=== PATIENT | male | born 1940 | race Caucasian/White ===

== ENCOUNTER 2020-09-28 19:45 | Emergency (ER) | payer MEDICARE, OTHER ==
[2020-09-28] MEDS ORDERED: Sodium Chloride 0.9% 2.5 ML Syringe FLUSH PRN (19:47)
[2020-09-28] MEDS ORDERED: Sodium Chloride 0.9% 10 ML Syringe FLUSH PRN (19:47)
[2020-09-28] MEDS ORDERED: Labetalol 100 MG/20 ML MDV IVPUSH ONE ×2 (19:47→20:40)
[2020-09-28] MEDS ORDERED: Sodium Chloride 0.9% 10 ML SDV IV PRN (19:47)
[2020-09-28] MEDS ORDERED: niCARdipine/Normal Saline 40 MG/200 ML BAG IV SCH (20:00)
--- NOTE | 2020-09-28 20:06 | EDM.PDOC ---
ED HPI GENERAL MEDICAL PROBLEM - General Stated Complaint: STROKE CODE Time Seen by Provider: 09/28/20 19:45 - History of Present Illness INITIAL COMMENTS - FREE TEXT/NARRATIVE: HISTORY AND PHYSICAL: History of present illness: This is a 79-year-old healthy gentleman who presents ER today secondary to acute onset of right facial droop and unsteady gait that started at approximately 3:15 PM tonight on his way back from [place]. Patient denies any history of hypertension, diabetes, liver, lung, kidney, CAD, irregular heartbeats, atrial fibrillation/atrial flutter, strokes, cancer in the past. Patient denies any prior recent abdominal surgeries other than inguinal hernia repairs in the distant past. Patient denies any recent fevers, shakes, chills, nausea, vomiting, diarrhea, dysuria, frequency, urgency. Patient reports that prior to the symptoms he was in his usual state of good health. Patient reports that the only medication he takes is an aspirin daily. Patient reports he has had no headache, double vision, blurred vision. Patient reports no slurring of speech but he does have a right facial droop and does drooling of saliva. Patient reports that he has not experienced weakness in his upper extremities but does feel off balance when ambulating. Patient denies any tobacco, alcohol, drugs. Patient has no known drug allergies. Review of systems: As per history of present illness and below otherwise all systems reviewed and negative. Past medical history: As per history of present illness and as reviewed below otherwise noncontributory. Surgical history: As per history of present illness and as reviewed below otherwise noncontributory. Social history: No reported history of drug or alcohol abuse. Family history: As per history of present illness and as reviewed below otherwise noncontributory. Physical exam: This patient was seen and evaluated during the 2019 SARS-CoV-2 novel coronavirus pandemic period. Community viral transmission is ongoing at time of this encounter and the emergency department is operating under pandemic response procedures. Constitutional: Patient is oriented to person, place, and time. Appears well- developed and well-nourished. No distress. HEENT: Moist mucous membranes Head: Normocephalic and atraumatic Eyes: Right eye exhibits no discharge. Left eye exhibits no discharge. No scleral icterus Neck: Normal range of motion. No tracheal deviation present. Cardiovascular: Normal rate and regular rhythm. Pulmonary: Effort normal, no respiratory distress. Abdominal: No distention Musculoskeletal: Normal range of motion Neurologic: Alert and oriented to person, place and time. Skin: [place], warm and dry. Psychiatric: Normal mood and affect. Behavior is normal. Judgment and thought content normal. Nursing note and vital signs have been reviewed Patient's ER physical exam is significant for right facial droop. Patient's eyebrow and forehead muscle function is intact and not consistent with a Singleton's palsy. Patient's pupils are equally round and reactive to light. Extraocular motions are intact. No nystagmus. Tongue is midline. Patient has no pronator drift. Patient sensation is intact. Patient does have weakness to his right lower extremity relative to his left lower extremity. 1a) Level of consciousness: 0=alert; 1=not alert but arousable by minor stimulation; 2=not alert: requires repeated stimulation to attend or is obtunded and requires strong or painful stimulation to make movements; 3=responds only with reflex motor or autonomic effects or totally unresponsive, flaccid and areflexic SCORE 0 1b) LOC questions ("what month is it?", "how old are you?"): 0=answers both correctly; 1=answers one correctly; 2=answers neither correctly SCORE 0 1c) LOC commands (command patient to "open and close your eyes. [place] and release your hand.): 0=performs both correctly; 1=performs one correctly; 2=performs neither correctly SCORE 0 2) Best gaze ("follow my finger"): 0=normal; 1=partial gaze palsy; 2=forced deviation or total gaze paresis SCORE 0 3) Visual tovar (use confrontation, finger counting, or visual threat. confront upper/lower quadrants of visual field): 0=no visual loss; 1=partial hemianopsia; 2=complete hemianopsia; 3=bilateral hemianopsia SCORE 0 4) Facial palsy (by words or pantomime, encourage patient to: "Show me your teeth. Raise your eyebrows. Close your eyes."): 0=normal symmetrical movement; 1=minor paralysis (flattened nasolabial fold, asymmetry on smiling); 2=partial paralysis (lower face); 3=complete paralysis SCORE 2 5) Arm motor (alternately position patient's arms. extend each arm with palms down [90 degrees if sitting, 45 degrees if supine] - test each arm in turn and start with nonparetic arm first): 0=no drift; 1=drift (arm falls before 10 seconds); 2=some effort vs. gravity; 3=no effort vs. gravity; 4=no movement; UN (untestable)=amputation or joint fusion SCORE 0 6) Leg motor (alternately position patient's legs. extend each leg [30 degrees, always while supine] - test nonparetic leg first): 0=no drift; 1=drift (leg falls before 5 seconds); 2=some effort vs. gravity; 3= no effort vs. gravity; 4=no movement; UN=amputation or joint fusion SCORE 1 7) Limb ataxia (ask patient [eyes open] to: "touch your finger to your nose. touch your heel to your calderon"): 0=absent; 1=present in one limb; 2=present in two or more limbs; UN=amputation or joint fusion SCORE 0 8) Sensory (test as many body parts as possible [arms and not hands, legs, trunk, face] for sensation using pinprick or noxious stimuli [in the obtunded or aphasic patient]): 0=normal; 1=mild to moderate sensory loss; 2=severe to total sensory loss SCORE 0 9) Best language (using pictures and a sentence list, ask patient to "describe what you see in this picture. Name the items in this picture. Read these sentences"): 0=no aphasia, 1=mild to moderate aphasia; 2=severe aphasia; 3=mute, global aphasia SCORE 0 10) Dysarthria (using a simple word list, ask patient to: "read these words" or "repeat these words"): 0=normal articulation; 1=mild to moderate dysarthria; 2=severe dysarthria; UN=intubated or other physical barrier SCORE 0 11) Extinction and inattention (sufficient information to determine these scores may have been obtained during the prior testing): 0=no abnormality; 1=visual, tactile, auditory, spatial or personal inattention; 2=profound danish-inattention or extinction to more than one modality SCORE 0 TOTAL NIHSS Score: Diagnostics: 3 EKG: As interpreted by ER physician: Barber: Nonspecific ST-T wave abnormalities Normal axis No evidence of ST elevation LA Normal sinus rhythm heart rate of 73 Chest Xray: Normal cardiac silhouette No infiltrates or effusions identified. No PTX No evidence of acute bony fracture. As interpreted by ER MD: Barber [employer]: Aspirin 325 mg chewed p.o. Ativan 2 mg IV prior to EMS transport Labetalol 20 mg IV x2 Assessment and plan: This is a 79-year-old gentleman with no significant past medical history presents ER today approximately 3 and half hours past his last known well with complaint of right facial droop and unsteady gait. Patient reports that the symptoms started while he was in his car on his way back from [place]. Patient ports that he was not driving at the time. Upon arrival to the ER, patient's blood glucose was within normal limits. Patient's blood pressure was markedly elevated at 226/126. During his CT scan patient blood pressure appeared to improve spontaneously prior to any medications being administered. Labetalol point milligrams IV has been ordered as well as nicardipine drip in case his blood pressure should continue to remain with an elevated systolic and diastolic blood pressure. Patient has had blood work drawn and sent to the lab. CT scan of his head as well as a CTA of his head and neck has been ordered CTA of head and neck revealed no acute pathology. CT head revealed no acute stroke or bleed. Patient's blood pressure has been monitored in the ED, after labetalol 20 mg IV x2 there is significant improvement. Patient symptoms have persisted. Patient still has a slight right lower extremity weakness which he reports is baseline for him and reports that he has had right hip problems for years and believes that there are no new weaknesses although he does report that he did have some unsteady gait when he got out of the car after his symptoms began. I have discussed the case with Dr. Ramos at [facility] who is agreed to accept patient for transfer and assist with his acute stroke symptoms as well as his non-STEMI and elevated BP. All pertinent labs, vital signs and history/physical exam findings have been relayed prior to transfer. Delay of care and transferring patient to secondary to patient's initial refusal for transfer or even admission to the hospital. I have spent greater than 40 minutes discussing with patient, his friends and his over the phone. With the assistance of his , patient was finally agreed to left transfer to the hospital which is a higher level of care for treatment and evaluation of his stroke/non-STEMI. Stroke alert activated Critical Care: The high probability of sudden, clinically significant deterioration in the patient's condition required the highest level of my preparedness to intervene urgently. The services I provided to this patient were to treat and/or prevent clinically significant deterioration. Services included the following: chart data review, reviewing nursing notes and/or old charts, documentation time, senior consumer insights consultant collaboration regarding findings and treatment options, medication orders and management, direct patient care, vital sign assessments and ordering, interpreting and reviewing diagnostic studies/lab tests. Aggregate critical care time includes only time during which I was engaged inwork directly related to the patient's care, as described above, whether at the bedside or elsewhere in the Emergency Department. It did not include time spent performing other reported procedures or the services of residents, students, nurses or physician assistants. Critical Care Time: 35 minutes Definitive disposition and diagnosis as appropriate pending reevaluation and review of above. - Related Data Allergies Allergy/AdvReac Type Severity Reaction Status Date / Time No Known Allergies Allergy Verified 09/28/20 20:18 Home Meds: Home Meds . [No Known Home Meds] 09/28/20 [History] ED ROS GENERAL - Review of Systems Review Of Systems: See Below ED EXAM, GENERAL - Physical Exam Exam: See Below Course - Vital Signs Last Recorded V/S: Last Vital Signs Temp 97.0 F 09/28/20 19:45 Pulse 86 09/28/20 19:45 Resp 18 09/28/20 19:45 BP 184/120 H 09/28/20 20:15 Pulse Ox 88 L 09/28/20 19:45 - Orders/Labs/Meds Orders: Active Orders 24 hr Category Date Time Status Assess Neurological Status [RC] ASDIRECTED Care 09/28/20 19:47 Active Bedrest [RC] ASDIRECTED Care 09/28/20 19:47 Active Blood Glucose Check, Bedside [RC] STAT Care 09/28/20 19:48 Active Cardiac Monitoring [RC] . DIRECTED Care 09/28/20 19:47 Active EKG Documentation Completion [RC] STAT Care 09/28/20 19:47 Active Height and Weight [RC] UPON Care 09/28/20 19:47 Active Initiate Acute Stroke Protocol [RC] STAT Care 09/28/20 19:47 Active NIH Stroke Scale [RC] ASDIRECTED Care 09/28/20 19:47 Active Nursing Bedside Swallow Screen [RC] ASDIRECTED Care 09/28/20 19:47 Active Oxygen Therapy [RC] ASDIRECTED Care 09/28/20 19:47 Active Stroke Education, General [] Click to Edit Care 09/28/20 19:47 Active Vital Signs [] Q15M Care 09/28/20 19:47 Active Aspirin Med 09/28/20 21:33 Once 324 mg PO ONETIME ONE LORazepam [Ativan] Med 09/28/20 21:32 Once 2 mg IVPUSH ONETIME ONE Sodium Chloride 0.9% [Normal Saline] Med 09/28/20 19:47 Active 10 ml IV ASDIRECTED PRN Sodium Chloride 0.9% [Saline Flush] Med 09/28/20 19:47 Active 10 ml FLUSH ASDIRECTED PRN Sodium Chloride 0.9% [Saline Flush] Med 09/28/20 19:47 Active 2.5 ml FLUSH ASDIRECTED PRN niCARdipine/Normal Saline [Cardenein NS 40 MG/200 ML] Med 09/28/20 20:00 Active 40 mg in 200 ml IV TITRATE Peripheral IV Insertion Adult [OM.PC] Stat Oth 09/28/20 19:47 Ordered Peripheral IV Insertion Adult [OM.PC] Stat Oth 09/28/20 19:47 Ordered Medication Orders Nicardipine HCl (Cardenein Ns 40 Mg/200 Ml) 40 mg in 200 mls @ 25 mls/hr IV TITRATE ELODIA; Protocol Lorazepam (Lorazepam 2 Mg/Ml Sdv) 2 mg IVPUSH ONETIME ONE Stop: 09/28/20 21:33 Sodium Chloride (Sodium Chloride 0.9% 10 Ml Syringe) 10 ml FLUSH ASDIRECTED PRN PRN Reason: Keep Vein Open Last Admin: 09/28/20 20:13 Dose: 10 ml Documented by: [id number] Sodium Chloride (Sodium Chloride 0.9% 2.5 Ml Syringe) 2.5 ml FLUSH ASDIRECTED PRN PRN Reason: Keep Vein Open Last Admin: 09/28/20 20:14 Dose: 2.5 ml Documented by: [id number] Sodium Chloride (Sodium Chloride 0.9% 10 Ml Sdv) 10 ml IV ASDIRECTED PRN PRN Reason: IV Use Labs: Laboratory Tests 09/28/20 09/28/20 09/28/20 Range/Units 19:44 19:44 19:44 WBC 7.68 (4.0-11.0) K/uL RBC 4.70 (4.50-5.90) M/uL Hgb 14.5 (13.0-17.0) g/dL Hct 43.2 (38.0-50.0) % MCV 91.9 (80.0-98.0) fL MCH 30.9 (27.0-32.0) pg MCHC 33.6 (31.0-37.0) g/dL RDW Std Deviation 44.9 (28.0-62.0) fl RDW Coeff of Lalo 13 (11.0-15.0) % Plt Count 140 L (150-400) K/uL MPV 9.50 (7.40-12.00) fL Neut % (Auto) 60.1 (48.0-80.0) % Lymph % (Auto) 29.7 (16.0-40.0) % [place] % (Auto) 9.2 (0.0-15.0) % Eos % (Auto) 0.9 (0.0-7.0) % Baso % (Auto) 0.1 (0.0-1.5) % Neut # (Auto) 4.6 (1.4-5.7) K/uL Lymph # (Auto) 2.3 (0.6-2.4) K/uL [place] # (Auto) 0.7 (0.0-0.8) K/uL Eos # (Auto) 0.1 (0.0-0.7) K/uL Baso # (Auto) 0.0 (0.0-0.1) K/uL Nucleated RBC % 0.0 /100WBC Nucleated RBCs # 0 K/uL INR 1.10 APTT 27.3 (18.6-31.3) SEC Sodium 139 (136-148) mmol/L Potassium 3.8 (3.5-5.1) mmol/L Chloride 103 (98-107) mmol/L Carbon Dioxide 28.0 (21.0-32.0) mmol/L BUN 14 (7.0-18.0) mg/dL Creatinine 1.0 (0.8-1.3) mg/dL Est Cr Clr Drug Dosing TNP Estimated GFR (MDRD) > 60.0 ml/min Glucose 112 H (74-106) mg/dL Calcium 8.9 (8.5-10.1) mg/dL Total Bilirubin 0.4 (0.2-1.0) mg/dL AST 47 H (15-37) IU/L ALT 31 (14-63) IU/L Alkaline Phosphatase 80 (46-116) U/L Troponin I 2.157 H* (0.000-0.056) ng/mL Total Protein 7.8 (6.4-8.2) g/dL Albumin 4.0 (3.4-5.0) g/dL Globulin 3.8 (2.6-4.0) g/dL Albumin/Globulin Ratio 1.1 (0.9-1.6) TSH 3rd Generation 0.84 (0.36-3.74) uIU/mL Urine Color Urine Appearance Urine pH (5.0-8.0) Ur Specific Speculator (1.001-1.035) Urine Protein (NEGATIVE) mg/dL Urine Glucose (UA) (NEGATIVE) mg/dL Urine Ketones (NEGATIVE) mg/dL Urine Occult Blood (NEGATIVE) Urine Nitrite (NEGATIVE) Urine Bilirubin (NEGATIVE) Urine Urobilinogen (<2.0) EU/dL Ur Leukocyte Esterase (NEGATIVE) Urine RBC (0-2/HPF) Urine WBC (0-5/HPF) Ur Epithelial Cells (NONE-FEW) Urine Bacteria (NEGATIVE) Urine Opiates Screen (NEGATIVE) Ur Oxycodone Screen (NEGATIVE) Urine Methadone Screen (NEGATIVE) Ur Barbiturates Screen (NEGATIVE) Ur Phencyclidine Scrn (NEGATIVE) Ur Amphetamine Screen (NEGATIVE) U Methamphetamines Scrn (NEGATIVE) U Benzodiazepines Scrn (NEGATIVE) U Cocaine Metab Screen (NEGATIVE) U Marijuana (THC) Screen (NEGATIVE) Ethyl Alcohol < 3.0 mg/dL 09/28/20 09/28/20 Range/Units 20:15 20:15 WBC (4.0-11.0) K/uL RBC (4.50-5.90) M/uL Hgb (13.0-17.0) g/dL Hct (38.0-50.0) % MCV (80.0-98.0) fL MCH (27.0-32.0) pg MCHC (31.0-37.0) g/dL RDW Std Deviation (28.0-62.0) fl RDW Coeff of Lalo (11.0-15.0) % Plt Count (150-400) K/uL MPV (7.40-12.00) fL Neut % (Auto) (48.0-80.0) % Lymph % (Auto) (16.0-40.0) % [place] % (Auto) (0.0-15.0) % Eos % (Auto) (0.0-7.0) % Baso % (Auto) (0.0-1.5) % Neut # (Auto) (1.4-5.7) K/uL Lymph # (Auto) (0.6-2.4) K/uL [place] # (Auto) (0.0-0.8) K/uL Eos # (Auto) (0.0-0.7) K/uL Baso # (Auto) (0.0-0.1) K/uL Nucleated RBC % /100WBC Nucleated RBCs # K/uL INR APTT (18.6-31.3) SEC Sodium (136-148) mmol/L Potassium (3.5-5.1) mmol/L Chloride (98-107) mmol/L Carbon Dioxide (21.0-32.0) mmol/L BUN (7.0-18.0) mg/dL Creatinine (0.8-1.3) mg/dL Est Cr Clr Drug Dosing Estimated GFR (MDRD) ml/min Glucose (74-106) mg/dL Calcium (8.5-10.1) mg/dL Total Bilirubin (0.2-1.0) mg/dL AST (15-37) IU/L ALT (14-63) IU/L Alkaline Phosphatase (46-116) U/L Troponin I (0.000-0.056) ng/mL Total Protein (6.4-8.2) g/dL Albumin (3.4-5.0) g/dL Globulin (2.6-4.0) g/dL Albumin/Globulin Ratio (0.9-1.6) TSH 3rd Generation (0.36-3.74) uIU/mL Urine Color YELLOW Urine Appearance CLEAR Urine pH 7.0 (5.0-8.0) Ur Specific Speculator <= 1.005 (1.001-1.035) Urine Protein NEGATIVE (NEGATIVE) mg/dL Urine Glucose (UA) NEGATIVE (NEGATIVE) mg/dL Urine Ketones NEGATIVE (NEGATIVE) mg/dL Urine Occult Blood NEGATIVE (NEGATIVE) Urine Nitrite NEGATIVE (NEGATIVE) Urine Bilirubin NEGATIVE (NEGATIVE) Urine Urobilinogen 0.2 (<2.0) EU/dL Ur Leukocyte Esterase NEGATIVE (NEGATIVE) Urine RBC 0-2 (0-2/HPF) Urine WBC 0-1 (0-5/HPF) Ur Epithelial Cells RARE (NONE-FEW) Urine Bacteria RARE (NEGATIVE) Urine Opiates Screen NEGATIVE (NEGATIVE) Ur Oxycodone Screen NEGATIVE (NEGATIVE) Urine Methadone Screen NEGATIVE (NEGATIVE) Ur Barbiturates Screen NEGATIVE (NEGATIVE) Ur Phencyclidine Scrn NEGATIVE (NEGATIVE) Ur Amphetamine Screen NEGATIVE (NEGATIVE) U Methamphetamines Scrn NEGATIVE (NEGATIVE) U Benzodiazepines Scrn NEGATIVE (NEGATIVE) U Cocaine Metab Screen NEGATIVE (NEGATIVE) U Marijuana (THC) Screen NEGATIVE (NEGATIVE) Ethyl Alcohol mg/dL Meds: Medications Generic Name Dose Route Start Last Admin Trade Name Freq PRN Reason Stop Dose Admin Nicardipine HCl 40 mg in 200 mls @ 25 mls/hr 09/28/20 20:00 Cardenein Ns 40 Mg/200 Ml IV TITRATE ELODIA Protocol 5 MG/HR Lorazepam 2 mg 09/28/20 21:32 Lorazepam 2 Mg/Ml Sdv IVPUSH 09/28/20 21:33 ONETIME ONE Sodium Chloride 10 ml 09/28/20 19:47 09/28/20 20:13 Sodium Chloride 0.9% 10 Ml Syringe FLUSH 10 ml ASDIRECTED PRN Administration Keep Vein Open Sodium Chloride 2.5 ml 09/28/20 19:47 09/28/20 20:14 Sodium Chloride 0.9% 2.5 Ml Syringe FLUSH 2.5 ml ASDIRECTED PRN Administration Keep Vein Open Sodium Chloride 10 ml 09/28/20 19:47 Sodium Chloride 0.9% 10 Ml Sdv IV ASDIRECTED PRN IV Use Discontinued Medications Generic Name Dose Route Start Last Admin Trade Name Freq PRN Reason Stop Dose Admin Iopamidol 100 ml 09/28/20 20:22 09/28/20 20:22 Iopamidol 755 Mg/Ml 500 Ml Multipack Bottle IVPUSH 09/28/20 20:23 100 ml ONETIME STA Administration Labetalol HCl 20 mg 09/28/20 19:47 09/28/20 20:14 Labetalol 100 Mg/20 Ml Mdv IVPUSH 09/28/20 19:48 20 mg ONETIME ONE Administration Labetalol HCl 20 mg 09/28/20 20:40 09/28/20 20:40 Labetalol 100 Mg/20 Ml Mdv IVPUSH 09/28/20 20:41 20 ml ONETIME ONE Administration Protocol Departure - Departure Time of Disposition: 21:37 Disposition: DC/Tfer to Acute Hospital 02 Condition: Good Clinical Impression: Non-STEMI (non-ST elevated myocardial infarction), Acute stroke due to ischemia, Hypertensive crisis - Discharge Information Sepsis Event Note (ED) - Focused Exam Vital Signs: Vital Signs Temp Pulse Resp BP Pulse Ox 09/28/20 20:15 184/120 H 09/28/20 19:45 97.0 F 86 18 206/128 H 88 L - My Orders Last 24 Hours: My Active Orders 09/28/20 19:47 Assess Neurological Status [RC] ASDIRECTED Bedrest [RC] ASDIRECTED Cardiac Monitoring [RC] . DIRECTED EKG Documentation Completion [RC] STAT Height and Weight [RC] UPON Initiate Acute Stroke Protocol [RC] STAT NIH Stroke Scale [RC] ASDIRECTED Nursing Bedside Swallow Screen [RC] ASDIRECTED Oxygen Therapy [RC] ASDIRECTED Stroke Education, General [RC] Click to Edit Vital Signs [RC] Q15M Sodium Chloride 0.9% [Normal Saline] 10 ml IV ASDIRECTED PRN Sodium Chloride 0.9% [Saline Flush] 10 ml FLUSH ASDIRECTED PRN Sodium Chloride 0.9% [Saline Flush] 2.5 ml FLUSH ASDIRECTED PRN Peripheral IV Insertion Adult [OM.PC] Stat Peripheral IV Insertion Adult [OM.PC] Stat 09/28/20 19:48 Blood Glucose Check, Bedside [RC] STAT 09/28/20 20:00 niCARdipine/Normal Saline [Cardenein NS 40 MG/200 ML] 40 mg in 200 ml IV TITRATE 09/28/20 21:32 LORazepam [Ativan] 2 mg IVPUSH ONETIME ONE 09/28/20 21:33 Aspirin 324 mg PO ONETIME ONE - Assessment/Plan Last 24 Hours: My Active Orders 09/28/20 19:47 Assess Neurological Status [RC] ASDIRECTED Bedrest [RC] ASDIRECTED Cardiac Monitoring [RC] . DIRECTED EKG Documentation Completion [RC] STAT Height and Weight [RC] UPON Initiate Acute Stroke Protocol [RC] STAT NIH Stroke Scale [RC] ASDIRECTED Nursing Bedside Swallow Screen [RC] ASDIRECTED Oxygen Therapy [RC] ASDIRECTED Stroke Education, General [RC] Click to Edit Vital Signs [RC] Q15M Sodium Chloride 0.9% [Normal Saline] 10 ml IV ASDIRECTED PRN Sodium Chloride 0.9% [Saline Flush] 10 ml FLUSH ASDIRECTED PRN Sodium Chloride 0.9% [Saline Flush] 2.5 ml FLUSH ASDIRECTED PRN Peripheral IV Insertion Adult [OM.PC] Stat Peripheral IV Insertion Adult [OM.PC] Stat 09/28/20 19:48 Blood Glucose Check, Bedside [RC] STAT 09/28/20 20:00 niCARdipine/Normal Saline [Cardenein NS 40 MG/200 ML] 40 mg in 200 ml IV TITRATE 09/28/20 21:32 LORazepam [Ativan] 2 mg IVPUSH ONETIME ONE 09/28/20 21:33 Aspirin 324 mg PO ONETIME ONE
--- NOTE | 2020-09-28 20:20 | CT ---
Indication: Stroke. Technique: Multiple axial images were obtained through the brain without contrast. Sagittal and coronal reformatted images were obtained. COMPARISON: None. FINDINGS: The ventricles and sulci are within normal limits for patient`s age. There is no mass effect or midline shift. There is no intracranial hemorrhage. The miner-white matter differentiation is unremarkable. There is near-complete opacification of the left maxillary antrum. There is a small retention cyst in the right maxillary antrum. There is no fracture seen on bone windows. IMPRESSION: No acute intracranial abnormality on CT scan of the head without contrast. Please note that all CT scans at this facility use dose modulation, iterative reconstruction, and/or weight-based dosing when appropriate to reduce radiation dose to as low as reasonably achievable. Dictated by Cristhian Castillo MD @ Sep 28 2020 8:16PM Signed by Dr. Cristhian Castillo @ Sep 28 2020 8:19PM
[2020-09-28] MEDS ORDERED: Iopamidol 755 MG/ML 500 ML Multipack Bottle IVPUSH STA (20:22)
[2020-09-28 20:36] LABS: BLOOD UREA NITROGEN,BUN 14 mg/dL (7.0-18.0); CHLORIDE,CL 103 mmol/L (98-107); GLUCOSE RANDOM 112 mg/dL (74-106); POTASSIUM,K 3.8 mmol/L (3.5-5.1); SODIUM,NA 139 mmol/L (136-148)
--- NOTE | 2020-09-28 20:41 | CT ---
DATE: 09/28/2020. CLINICAL HISTORY: Patient with acute neurological deficit. TECHNIQUE: Standard helical CT image acquisition through the head and neck was performed after intravenous contrast bolus enhancement. Multiplanar reconstructed images were performed and interpreted. COMPARISON: None available. FINDINGS: The origins of the great vessels from the aortic arch are patent. The origins of the right and left vertebral arteries are patent. The common carotid arteries and proximal internal carotid arteries are patent. The distal cervical segments of the internal carotid arteries are patent. The cervical segments of the vertebral arteries are patent. No intracranial proximal large vessel occlusion or flow-limiting luminal stenosis. The visualized lung apices are unremarkable. There is an approximately 4.3 cm x 2.2 cm soft tissue mass in the mid to upper mediastinum in the left paratracheal region. This may reflect a primary lesion versus a lymph node. Further assessment with dedicated chest CT on a nonemergent basis is recommended. The thyroid gland is enlarged and heterogeneous. There are degenerative changes in the cervical spine. IMPRESSION: 1. No intracranial proximal large vessel occlusion or flow-limiting luminal stenosis. 2. Patent cervical arterial vasculature without hemodynamically significant luminal stenosis. 3. Large 4.3 cm x 2.2 cm left paratracheal soft tissue mass, as detailed above. This may reflect a primary lesion versus is a lymph node. Further assessment with dedicated chest CT on a nonemergent basis is recommended. Please note that all CT scans at this facility use dose modulation, iterative reconstruction, and/or weight-based dosing when appropriate to reduce radiation dose to as low as reasonably achievable. Dictated by Robbie Ngo MD @ Sep 29 2020 12:09PM Signed by Dr. Robbie Ngo @ Sep 29 2020 12:16PM
--- NOTE | 2020-09-28 20:43 | CR ---
Indication: Stroke Technique: Chest 1 view Comparison: None Findings/Impression: Cardiovascular and mediastinum: Mild cardiomegaly with aortic tortuosity and atherosclerotic calcification. Lungs and pleural space: Lungs are clear. No sign of infiltrate or mass. No sign of pleural effusion. No pneumothorax. Bones and soft tissues: No acute findings. Dictated by Austin Rosas MD @ Sep 28 2020 8:39PM Signed by Dr. Austin Rosas @ Sep 28 2020 8:41PM
[2020-09-28] MEDS ORDERED: LORazepam 2 MG/ML SDV IVPUSH ONE (21:32)
[2020-09-28] MEDS ORDERED: Aspirin 81 MG Tab.Chew PO ONE (21:33)
[2020-09-28] MEDS ORDERED: Heparin Sodium/0.45% NaCl 500 ML IV SCH ×2 (22:45)
== END 2020-09-28 22:58 ==
LOC: MW.ED 19:45
DX: I63.9 Cerebral infarction, unspecified (principal); I21.4 Non-ST elevation (NSTEMI) myocardial infarction; I16.9 Hypertensive crisis, unspecified; Z20.822 Contact with and (suspected) exposure to COVID-19
CPT/HCPCS: 36415; 70450; 70496; 70498; 71045; 80053; 80305; 80307; 81001; 84443; 84484; 85025; 85610; 85730; 93005; 96374; 96375; 96376; 99285; A9270; J1644; J2060; J3490; Q9967; U0002; 99291